=== PATIENT | female | born 1995 | race Caucasian/White ===

== ENCOUNTER 2020-04-24 07:55 | Outpatient (CLI) | payer BC, SELFPAY ==
--- NOTE | ~2020-04-24 | US_ITS ---
US breast LT limited INDICATION: Probable left breast lump TECHNIQUE: Dedicated left breast ultrasound COMPARISON: No prior studies for comparison. FINDINGS: At 2:00, 5 cm from the nipple, there is an oval circumscribed hypoechoic mass with internal vascularity. No significant posterior features. This mass measures 1.4 x 0.5 x 1.3 cm. At 2:00, 7 cm from the nipple, there is a 6 mm cyst. IMPRESSION: 1: Probable benign left breast mass at 2:00, 5 cm from the nipple. BI-RADS CATEGORY 3-PROBABLY BENIGN FINDING RECOMMENDATION: Six-month follow-up left breast ultrasound recommended. Reviewed, dictated and finalized at location A.
== END 2020-04-24 07:56 | disposition home or self-care (01) ==
LOC: ANHIMG 08:04
PROVIDERS: Visit Provider Nurse Practitioner Obstetrics & Gynecology
DX: N63.20 Unspecified lump in the left breast, unspecified quadrant (principal); R92.8 Other abnormal and inconclusive findings on diagnostic imaging of breast
CPT/HCPCS: 76642

== ENCOUNTER 2020-10-25 11:05 | Outpatient (CLI) | payer BC, SELFPAY ==
--- NOTE | ~2020-10-25 | US_ITS ---
US breast LT limited DATE: 10/25/2020 11:38 INDICATION: Left breast lump TECHNIQUE: High-resolution ultrasound imaging targeted to abnormalities at 2:00 5 cm from nipple and 3:00 5 cm from nipple COMPARISON: 04/24/2020 limited left breast ultrasound FINDINGS: There is an oval circumscribed sonolucency with through transmission posterior enhancement and no internal vascularity at 2:00 5 cm from the nipple, measuring 4.3 x 7.5 x 6 mm, consistent with simple cyst, benign. There is a stable circumscribed hypoechoic lobular soft tissue mass at 3:00 5 cm from the nipple, wit hout posterior shadowing, measuring approximately 5.8 x 15 x 15.7 mm. There is stable since 0 and is likely a benign fibroadenoma. IMPRESSION: BI-RADS Category 2: Benign Recommendation: Routine mammographic screening beginning at age 40 unless there is interval change Reviewed, dictated and finalized at [facility]. Reviewed, dictated and finalized at location A. L SETTER
== END 2020-10-25 11:06 | disposition home or self-care (01) ==
PROVIDERS: Family Provider Pediatrics; Visit Provider Nurse Practitioner Obstetrics & Gynecology
DX: N63.20 Unspecified lump in the left breast, unspecified quadrant (principal)
CPT/HCPCS: 76642

== ENCOUNTER → 2021-09-21 09:46 | Outpatient (CLI) | payer BC, SELFPAY ==
--- NOTE | ~2021-09-21 | US_ITS ---
US breast LT limited 09/21/2021 10:14 Indication: Palpable left breast abnormality Procedure: High-resolution Limited left breast ultrasound Comparison: 10/25/2020 Findings: At 2:00, 7 cm from the nipple there is a 8 mm cyst. 3:00, 7 cm from the nipple there is an oval hypoechoic mass measuring 2.0 x 0.8 x 1.9 cm with parallel orientation, circumscribed margins, n o significant posterior shadowing and no internal vascularity. Also at this location is a similar-abbey earing 1 cm mass with same sonographic features. There is a smaller 7 mm oval hypoechoic mass with pa rallel orientation, circumscribed margins, no significant posterior features. The 2 contiguous hypoec hoic masses which are larger likely corresponds to the sonographic mass seen on prior examination wit hout significant change allowing for differences of technique. Impression: 1: Probable benign left breast masses. BI-RADS CATEGORY 3-PROBABLY BENIGN FINDING RECOMMENDATION: 6 month follow up recommended. Reviewed, dictated and finalized at location A. REPRESENTATIVE Impression: 1: Probable benign left breast masses. BI-RADS CATEGORY 3-PROBABLY BENIGN FINDING RECOMMENDATION: 6 month follow up recommended.
== END ==
PROVIDERS: Visit Provider Nurse Practitioner Obstetrics & Gynecology
DX: N63.20 Unspecified lump in the left breast, unspecified quadrant (principal); R92.8 Other abnormal and inconclusive findings on diagnostic imaging of breast
CPT/HCPCS: 76642

== ENCOUNTER → 2022-09-09 10:45 | Outpatient (CLI) | payer BC, SELFPAY ==
--- NOTE | ~2022-09-09 | US_ITS ---
EXAMINATION: US breast BI limited HISTORY: Six-month follow-up for probably benign left breast mass and newly palpable mass in the lowe r outer quadrant of the right breast. TECHNIQUE: 09/21/2021, 10/25/2020, 04/24/2020 FINDINGS: Right breast: There is a 7 mm x 3 mm oval, circumscribed, parallel, hypoechoic mass with no posterior features or internal vascularity at the 9:00 location 6 cm from the nipple in the right breast: Ther e is a 6 mm x 2 mm mass with similar sonographic features at the 8:00 location 6 cm from the nipple Left breast: There is a 3.3 x 0.9 cm oval, circumscribed, parallel, hypoechoic mass with posterior ac oustic enhancement and internal vascularity which demonstrates slight increase in size when compared to prior examinations. IMPRESSION: 1. Slowly increasing left breast mass. Ultrasound guided biopsy is recommended. 2. Probably benign right breast masses. Follow-up targeted ultrasound in six months is recommended. BI-RADS category 4, suspicious findings. Reviewed, dictated and finalized at location A. OPRACTIC PRACTICE MANAGER IMPRESSION: 1. Slowly increasing left breast mass. Ultrasound guided biopsy is recommended. 2. Probably benign right breast masses. Follow-up targeted ultrasound in six mo nths is recommended. BI-RADS category 4, suspicious findings.
== END ==
PROVIDERS: PCP Nurse Practitioner Obstetrics & Gynecology; Visit Provider Nurse Practitioner Obstetrics & Gynecology
DX: R92.8 Other abnormal and inconclusive findings on diagnostic imaging of breast (principal)
CPT/HCPCS: 76642

== ENCOUNTER 2023-08-27 16:02 | Emergency (ER) | payer BC, SELFPAY ==
--- NOTE | 2023-08-27 16:09 | ED.URI ---
HPI - URI/Sore Throat General Chief Complaint: Upper Respiratory Infection Stated Complaint: Strep Test Time Seen by Provider: 08/27/23 16:30 Source: patient and RN notes reviewed Mode of arrival: ambulatory Limitations: no limitations History of Present Illness HPI Narrative: 28-year-old female presents concern for sore throat. Reports she was exposed to strep throat. She reports some headache and stomachache. She denies fever body aches chills, sweats. Reports fatigue. She has not taking any medications for her sore throat. MD elicited complaint: sore throat Related Data Home Medications Medication Instructions Recorded Confirmed No Home Medications 08/27/23 08/27/23 Allergies Allergy/AdvReac Type Severity Reaction Status Date / Time No Known Allergies Allergy Unverified 08/27/23 16:27 Review of Systems Review of Systems: CONSTITUTIONAL: Denies malaise, chills, sweats, or fever. Reports fatigue EYES: Denies visual changes, redness, or discharge. ENT: Denies rhinorrhea, congestion, sinus pain, otalgia. Reports sore throat. CARDIOVASCULAR: Denies chest pain, palpitations, or edema. RESPIRATORY: Reports cough. Denies dyspnea. GASTROINTESTINAL: Denies abdominal pain, nausea, vomiting, diarrhea SKIN: Denies rash or itching. MUSCULOSKELETAL: Denies myalgia. NEUROLOGIC: Denies headache. All systems reviewed & are unremarkable except as noted in HPI and below PMFSH Comments At time of signature, agree with nursing past medical, surgical, social and family history. There is no relevant family history pertinent to the presenting complaint Exam Narrative: GENERAL: Well-appearing, well-nourished, and in no acute distress. HEAD: Normocephalic EYES: PERRLA, conjunctivae clear ENT: Nares clear. Mucous membranes moist. TM pearly joshua with sharp light reflex bilaterally; no tragal tenderness. Oropharynx not erythematous without lesions. Tonsils not enlarged and without exudate, no drooling, no hoarseness, no trismus, uvula midline. NECK: Supple. No lymphadenopathy CHEST: Clear to auscultation, breath sounds equal. No wheezing, rhonchi, rales, or stridor. No respiratory distress, speaks in full sentences. HEART: Regular rate and rhythm. No murmur heard. SKIN: Warm, dry, no rash. NEURO: Alert and oriented x3. PSYCH: Normal mood and affect Course Course Emergency Course: Patient is aware of diagnosis, understands and agrees to treatment plan. Anticipatory guidance given. Patient agrees to follow-up as directed and is aware of reasons to seek care at the emergency department. Portions of this record may have been created with voice recognition software Level of Care: Express Care Visit Vital Signs Vital signs: Reviewed. MDM - URI/Sore Throat MDM Narrative Medical decision making narrative: Differential diagnosis considered: Jensen virus, strep pharyngitis, allergic rhinitis, upper respiratory tract infection, sinusitis, rhinosinusitis, nasopharyngitis. viral pharyngitis, otitis media, otitis externa, pneumonia, bronchitis, viral cough syndrome, viral syndrome, and influenza. Exam findings show no acute concerns or changes; patient is non-toxic appearing and is in no distress. Patient is appropriate for outpatient treatment and follow-up. Lab Data Attestation: I reviewed the patient's lab results. Critical Care Time Critical Care Time Critical Care Time: No Discharge Plan Discharge Clinical Impression: Pharyngitis Patient Disposition: Home, Self-Care Condition: Stable Instructions: Pharyngitis (ED) Additional Instructions: Your rapid strep swab was negative today at [facility]. A throat culture will be sent to the laboratory for further testing. If the test is positive, you will receive a phone call within 48 hours and an appropriate antibiotic will be initiated at that time. Your symptoms are likely due to a viral illness, which is not treated with antibiotics. Viral symptoms can
[2023-08-27 16:12] VITALS: BP 118/83; PULSE 77; RESP 16; TEMP 37.1; O2SAT 100
== END 2023-08-27 16:39 | disposition home or self-care (01) ==
PROVIDERS: Emergency Provider Nurse Practitioner
DX: J02.9 Acute pharyngitis, unspecified (principal)
CPT/HCPCS: 87081; 87880; 99213; G0463

== ENCOUNTER 2024-12-28 10:00 | Outpatient (CLI) | payer OTHER, SELFPAY ==
--- NOTE | ~2024-12-28 | US_ITS ---
EXAMINATION: US breast BI complete HISTORY: 29-year-old woman presents for diagnostic evaluation of a palpable abnormality within the up per outer quadrant of the left breast. The patient reports a previous biopsy at an outside [facility] (somewhere in [place]) in the palpable area in 2021, which was benign (by report). No record of i nternal or outside pathology is on file at our institution for confirmation. High resolution bilateral breast ultrasound was performed, assessing grayscale appearance and color D oppler flow. COMPARISON: Reference is made to multiple prior ultrasound examinations performed most recently on and dating back to 04/24/2020. FINDINGS: ULTRASOUND: Within the area of palpable concern (the 2:00 - 3:00 position of the left breast, approximately 6-7 c m from the nipple) is a multilobulated well-circumscribed reniform shaped focus of mixed echogenicity , made up of approximately 3 conjoined separate areas. These measure 12 x 7 x 12 mm, 18 x 11 x 18 mm and 19 x 9 x 18mm. The morphology of this (likely) lymph node has not significantly changed in size or morphology (given changes in positioning and technique) when compared with multiple previous examinations dating back to 09/21/2021. At the 11:00 position of the left breast approximately 6 cm from the nipple is a reniform shaped focu s of decreased echogenicity with smooth margins and increased through transmission measuring 7 x 13 x 13 mm, not described on prior ultrasound examinations, likely secondary to the lack of palpable acce ss to this area as it is against the chest wall. Sonographic evaluation of the remainder of the bilateral breasts demonstrate benign fibroglandular el ements without a cystic or solid lesion of concern. IMPRESSION: No sonographic evidence to suggest the presence of malignancy. Largely stable morphology and size of a (likely) lymph node within the upper outer left breast, previ ously biopsied yielding negative results (by report) for which pathologic follow-up is needed. In addition, perhaps follow-up with a breast surgeon may be performed for excisional biopsy of this a vincenzo, given the repeated clinical concern. BI-RADS Category 2: Benign finding(s). Reviewed, dictated and finalized at location A. IMPRESSION: No sonographic evidence to suggest the presence of malignancy. Largely stable morphology and size of a (likely) lymph node within the upper ou ter left breast, previously biopsied yielding negative results (by report) for which pathologic follow-up is needed. In addition, perhaps follow-up with a breast surgeon may be performed for excis ional biopsy of this area, given the repeated clinical concern. BI-RADS Category 2: Benign finding(s).
== END 2024-12-28 10:01 | disposition home or self-care (01) ==
PROVIDERS: PCP Nurse Practitioner; Visit Provider Nurse Practitioner
DX: N63.0 Unspecified lump in unspecified breast (principal)
CPT/HCPCS: 76641